=== PATIENT | female | born 2000 | race Hispanic/Latino ===

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

== ENCOUNTER 2018-08-13 14:00 | Emergency (ER) | payer BC ==
[2018-08-13 14:30] LABS: #Basophils 0.1 thou/uL (0.0-0.2); #Eosinphils 0.3 thou/uL (0.0-0.7); #Monocytes 0.7 thou/uL (0.11-0.59); #Neutrophils 6.9 thou/uL (1.40-6.50); %Basophils 1.1 % (0.0-1.0); %Eosinophils 2.7 % (0.0-10.0); %Lymphocytes 33.5 % (28.0-48.0); %Monocytes 5.5 % (0.0-4.0); %Neutrophils 57.1 % (31.0-61.0); Hemoglobin 12.1 g/dL (12.0-16.0); Mean Corpuscular HGB CONC 32.6 g/dL (32.0-36.0); Mean Corpuscular Hemoglobin 27.3 pg (25.0-35.0); Mean Corpuscular Volume 83.9 fL (78.0-98.0); Platelet Count 317 thou/uL (130-400); RBC Distribution Width 12.6 % (11.5-14.5); Red Blood Cell (RBC) Count 4.42 mill/uL (4.00-5.20)
[2018-08-13 14:53] LABS: ALT (SGPT) 10 U/L (8-55); AST (SGOT) 10 U/L (5-34); Alkaline Phosphatase 68 U/L (40-150); Anion Gap 14 mmol/L (10-20); BUN (Urea Nitrogen) 13 mg/dL (7.0-18.7); Bilirubin, Total Less than 0.2 mg/dL (0.2-1.2); Calc. Creatinine Clearance 0 mL/min (70-130); Carbon Dioxide 22 mmol/L (22-29); Chloride 105 mmol/L (98-107); Estimated GFR-MDRD Greater than 90; Globulin 3.5 g/dL (2.4-3.5); Glucose 90 mg/dL (70-105); Lipase 20 U/L (8-78); Potassium 4.1 mmol/L (3.5-5.1); Protein, Total 7.5 g/dL (6.0-8.3); Sodium 137 mmol/L (136-145)
[2018-08-13 15:01] LABS: Bilirubin Negative (Negative); Blood, Urine Negative (Negative); Clarity CLEAR (Clear); Glucose, Urine (Dipstick) Negative (Negative); Leukocyte Negative (Negative); Nitrite Negative (Negative); Protein, Urine (Dipstick) Negative (Neg-Trace); Urobilinogen 0.2 mg/dL (0.2-1.0); pH, Urine 6.5 (5.0-9.0)
[2018-08-13 15:04] LABS: Pregnancy Test - Urine (BHCG) Negative (Negative); Pregu Control Background? CLEAR/WHITE (CLR/WHITE); Pregu Control Bar Appear? YES (CONTROL BAR)
[2018-08-13] MEDS ORDERED: Lidocaine Viscous Sol 2% 15 ml UD Cup ONE (16:33)
[2018-08-13] MEDS ORDERED: Mag-Al 1200 mg/1200 mg/30 ML UDCUP ONE (16:33)
[2018-08-13] MEDS ORDERED: Pantoprazole 40 MG VIAL ONE (16:33)
== END 2018-08-13 18:25 | disposition home or self-care (01) ==
LOC: ERS 14:00
DX: R10.12 Left upper quadrant pain (principal); F90.9 Attention-deficit hyperactivity disorder, unspecified type; Z79.899 Other long term (current) drug therapy
CPT/HCPCS: 36415; 80053; 81003; 81025; 83690; 85025; 96374; C9113

== ENCOUNTER 2018-09-22 09:57 | Outpatient (CLI) | payer BC ==
[2018-09-22] MEDS ORDERED: Iopamidol 370 76% 100 ML VIAL ONE (10:58)
--- NOTE | 2018-09-22 12:37 | CT ---
CT ABDOMEN AND PELVIS WITH ORAL AND IV CONTRAST: HISTORY: Left upper quadrant pain. FINDINGS: The lung bases are clear. The liver demonstrates diffuse attenuation compared to the spleen, consist ent with fatty infiltration. The spleen, pancreas, adrenal glands, and kidneys are normal. No calci fied gallstones are noted. No free air, free fluid, or lymphadenopathy is seen in the abdomen or pel vis. A normal-appearing appendix is present. Uterus and ovaries are visualized. No pericolonic inf lammatory changes are seen. No acute osseous abnormalities are seen. IMPRESSION: 1. Fatty liver. 2. No evidence of acute process. POS: [facility]
== END 2018-09-22 09:58 | disposition home or self-care (01) ==
LOC: CT 09:57
PROVIDERS: ATTEND Internal Medicine Gastroenterology
DX: K52.9 Noninfective gastroenteritis and colitis, unspecified (principal); R10.12 Left upper quadrant pain; K76.0 Fatty (change of) liver, not elsewhere classified
CPT/HCPCS: 74177; Q9967

== ENCOUNTER 2022-06-15 23:26 | Emergency (ER) | payer BC | END 2022-06-16 00:47 | disposition home or self-care (01) | LOC: ERS 23:26 | DX: R00.2 Palpitations (principal) | CPT/HCPCS: 93005 ==